=== PATIENT | male | born 1955 | race Caucasian/White ===

== ENCOUNTER 2018-03-18 12:12 | Inpatient (IN) | payer MEDICAID ==
[~2018-03-18] VITALS: Ht 165.1 cm; Wt 67.1 kg
[~2018-03-18 12:12] MED LIST: ASPI81TA2 PO; BACL10TA PO; BENA20TA2 PO; CARV3.1246 PO; EMPA25TA PO; GABA-531 PO; HYDR-1189 PO; LIP20 PO; METF1000 PO
[2018-03-18 12:35] VITALS: BP_SYST 130
[2018-03-18 13:44] LABS: BASOPHILS # (AUTO) 0.2 K/uL (0.0-0.2); BASOPHILS % (AUTO) 1.6 % (0.0-2.0); EOSINOPHILS # (AUTO) 0.1 K/uL (0.0-0.4); EOSINOPHILS % (AUTO) 1.3 % (0.0-4.0); HEMOGLOBIN 13.4 g/dL (14.0-18.0); LYMPHOCYTES # (AUTO) 1.3 K/uL (1.0-5.5); LYMPHOCYTES % (AUTO) 12.4 % (20.5-51.5); MEAN CORPUSCULAR HEMOGLOBIN 30 pg (27-31); MEAN CORPUSCULAR HGB CONC 33 % (32-36); MEAN CORPUSCULAR VOLUME 90 fL (79.0-98.0); MONOCYTES # (AUTO) 0.9 K/uL (0.0-1.0); MONOCYTES % (AUTO) 8.4 % (1.7-9.3); NEUTROPHILS # (AUTO) 8.3 K/uL (1.8-7.7); NEUTROPHILS % (AUTO) 76.3 % (40.0-70.0); PLATELET COUNT (AUTO) 295 K/uL (130-430); RED BLOOD CELL COUNT(AUTO) 4.44 MIL/uL (4.2-6.2); RED CELL DISTRIBUTION WIDTH 14.4 % (9.0-15.0); WHITE BLOOD COUNT (AUTO) 10.8 K/uL (4.8-10.8)
[2018-03-18 13:58] LABS: ANION GAP 7 (5-15); CALCIUM 8.7 mg/dL (8.4-11.0); CHLORIDE 105 mmol/L (98-107); CREATININE 1.24 mg/dL (0.55-1.30); GLUCOSE 173 mg/dL (70-99); POTASSIUM 4.4 mmol/L (3.5-5.1); SODIUM SERUM 138 mmol/L (136-145); UREA NITROGEN, BLOOD 33 mg/dL (8-21)
[2018-03-18 14:00] LABS: GFR AFRICAN AMERICAN 76 mL/min (>90)
[2018-03-18 14:10] LABS: ALANINE AMINOTRANSFERASE 12 U/L (12-78); ALBUMIN 3.6 g/dL (3.4-4.8); ASPARTATE AMINOTRANSFERASE 10 U/L (10-37); TOTAL BILIRUBIN 0.3 mg/dL (0.0-1.0)
[2018-03-18 14:12] LABS: ACETAMINOPHEN < 1 ug/mL (1-30); ALCOHOL, BLOOD < 3 mg/dL (<10)
[2018-03-18] MEDS ORDERED: NACL 0.9% 1,000 ML IV ONE (14:45)
[2018-03-18 16:23] LABS: BILIRUBIN,URINE NEGATIVE (NEGATIVE); BLOOD, URINE NEGATIVE (NEGATIVE); CLARITY/URINE CLEAR (CLEAR); COLOR,URINE YELLOW (YELLOW); GLUCOSE,URINE 3+ (NEGATIVE); KETONES,URINE NEGATIVE (NEGATIVE); LEUKOCYTE ESTERASE ,URINE NEGATIVE (NEGATIVE); NITRITE, URINE NEGATIVE (NEGATIVE); PH,URINE 5.5 (5.0-8.0); PROTEIN URINE NEGATIVE (NEGATIVE); UROBILINOGEN,URINE 0.2 (0.2-1.0)
[2018-03-18 16:38] LABS: BARBITURATE, URINE NEGATIVE (NEG <=200); BENZODIAZEPINE, URINE POSITIVE (NEG <=150); CANNABINOID, URINE NEGATIVE (NEG <=50); COCAINE, URINE NEGATIVE (NEG <=150); METHAMPHETAMINES SCREEN,URINE NEGATIVE (NEG <=500); OPIATE, URINE POSITIVE (NEG <=100); PHENCYCLIDINE SCREEN,URINE NEGATIVE (NEG <=25); UR TRICYCLIC ANTIDEPRESSANTS NEGATIVE (NEG <=300); URINE AMPHETAMINE NEGATIVE (NEG <=500); URINE METHADONE NEGATIVE (NEG <=200); URINE OXYCODONE SCREEN NEGATIVE (NEG <=100); URINE PROPOXYPHENE SCREEN NEGATIVE (NEG <=300)
[2018-03-18 16:50] LABS: BACTERIA,URINE FEW /HPF (None Seen); RBC,URINE NONE SEEN /HPF (0-3); WBC,URINE 0-3 /HPF (0-3)
[2018-03-18 16:51] LABS: FINE GRANULAR CASTS,URINE 0-10 /LPF (None Seen); MUCUS,URINE 1+ /LPF (None Seen)
[2018-03-18 17:19] VITALS: BP_SYST 156
[2018-03-18] MEDS ORDERED: DEXTROSE 50% JECT 50 ML DISP.SYRIN IVP PRN (18:30)
[2018-03-18] MEDS: HYDROcodone/ACETAMIN 5-325 MG TAB (NORCO/ VICODIN) PO PRN (18:52)
[2018-03-18] MEDS: INSULIN REGULAR, HUMAN 100 UNITS/ML, 10 ML VIAL (novoLIN R) SUBCUT PRN (18:56)
[2018-03-18 21:02] VITALS: BP_SYST 137
[2018-03-18] MEDS: GABAPENTIN 300 MG CAPSULE PO SCH (22:02)
[2018-03-18] MEDS: CARVEDILOL 3.125 MG TABLET (COREG) PO SCH (22:03)
[2018-03-18] MEDS: NACL 0.9% 1,000 ML IV SCH (22:07)
[2018-03-19 00:08] VITALS: BP_SYST 135
[2018-03-19] MEDS: INSULIN REGULAR, HUMAN 100 UNITS/ML, 10 ML VIAL (novoLIN R) SUBCUT PRN ×3 (00:56→18:18)
[2018-03-19] MEDS: HYDROcodone/ACETAMIN 5-325 MG TAB (NORCO/ VICODIN) PO PRN ×7 (01:53→23:14)
[2018-03-19] MEDS: NACL 0.9% 1,000 ML IV SCH ×3 (04:30→23:13)
[2018-03-19] MEDS ORDERED: HYDROcodone/ACETAMIN 5-325 MG TAB (NORCO/ VICODIN) ONE (07:03)
[2018-03-19] MEDS: IBUPROFEN 400 MG TABLET PO PRN ×2 (09:04→18:19)
[2018-03-19] MEDS: ATORVASTATIN 20 MG TABLET PO SCH (09:04)
[2018-03-19] MEDS: CARVEDILOL 3.125 MG TABLET (COREG) PO SCH ×2 (09:05→20:13)
[2018-03-19] MEDS: BENAZEPRIL HCL 20 MG TABLET (LOTENSIN) PO SCH (09:05)
[2018-03-19] MEDS: ASPIRIN 81 MG TAB.CHEW PO SCH (09:05)
[2018-03-19 12:36] VITALS: BP_SYST 124
[2018-03-19 16:01] VITALS: BP_SYST 111
[2018-03-19] MEDS ORDERED: DEXTROSE 50%-WATER 50 ML DISP.SYRIN IVP PRN ×2 (18:45)
[2018-03-19] MEDS ORDERED: INSULIN REGULAR, HUMAN 100 UNITS/ML, 10 ML VIAL (novoLIN R) SUBCUT PRN (18:45)
[2018-03-19] MEDS ORDERED: GLUCOSE 15 GM GEL (in 37.5 GM TUBE) PO PRN ×2 (18:45)
[2018-03-19 20:00] VITALS: BP_SYST 120
[2018-03-19] MEDS: GABAPENTIN 300 MG CAPSULE PO SCH (20:13)
[2018-03-20] VITALS: BP_SYST 132
[2018-03-20] MEDS: IBUPROFEN 400 MG TABLET PO PRN ×2 (02:32→10:37)
[2018-03-20] MEDS: HYDROcodone/ACETAMIN 5-325 MG TAB (NORCO/ VICODIN) PO PRN ×3 (03:10→11:44)
[2018-03-20 08:00] VITALS: BP_SYST 151
[2018-03-20] MEDS: ATORVASTATIN 20 MG TABLET PO SCH (09:01)
[2018-03-20] MEDS: NACL 0.9% 1,000 ML IV SCH (09:01)
[2018-03-20] MEDS: ASPIRIN 81 MG TAB.CHEW PO SCH (09:02)
[2018-03-20] MEDS: BENAZEPRIL HCL 20 MG TABLET (LOTENSIN) PO SCH (09:02)
[2018-03-20] MEDS: CARVEDILOL 3.125 MG TABLET (COREG) PO SCH (09:03)
[2018-03-20 12:23] VITALS: BP_SYST 135
== END 2018-03-20 12:40 | disposition home or self-care (01) | DRG 351 ==
LOC: SED 12:12 → SMU 15:57
PROVIDERS: ADMIT Internal Medicine Hospice and Palliative Medicine; ATTEND Internal Medicine Hospice and Palliative Medicine
DX: M19.011 Primary osteoarthritis, right shoulder (principal); G93.41 Metabolic encephalopathy; G20 Parkinson's disease; I42.9 Cardiomyopathy, unspecified; R44.3 Hallucinations, unspecified; R27.0 Ataxia, unspecified; E11.9 Type 2 diabetes mellitus without complications; I25.10 Atherosclerotic heart disease of native coronary artery without angina pectoris; E78.5 Hyperlipidemia, unspecified; I10 Essential (primary) hypertension; I25.2 Old myocardial infarction; Z79.82 Long term (current) use of aspirin; Z79.84 Long term (current) use of oral hypoglycemic drugs; Z79.899 Other long term (current) drug therapy
CPT/HCPCS: 36415; 73030; 80053; 80307; 81000-TC; 82607; 82962; 83036; 84443-TC; 85025; 87081; 96360; 97116-GP; 99285; G0480; G0481; G0482; J1815; J7030

== ENCOUNTER 2018-04-24 13:46 | Inpatient (IN) | payer MEDICAID ==
[~2018-04-24] VITALS: Ht 165.1 cm; Wt 63.5 kg
[2018-04-24 13:46] VITALS: BP_SYST 166
[~2018-04-24 13:46] MED LIST changes: +ASPI-1155 PO; -ASPI81TA2 PO
[2018-04-24] MEDS ORDERED: ASPIRIN 325 MG TABLET PO ONE (15:00)
[2018-04-24 15:09] LABS: BASOPHILS # (AUTO) 0.2 K/uL (0.0-0.2); BASOPHILS % (AUTO) 1.3 % (0.0-2.0); EOSINOPHILS # (AUTO) 0.4 K/uL (0.0-0.4); EOSINOPHILS % (AUTO) 3.1 % (0.0-4.0); HEMATOCRIT 34.7 % (36-54); HEMOGLOBIN 11.9 g/dL (14.0-18.0); LYMPHOCYTES # (AUTO) 1.5 K/uL (1.0-5.5); LYMPHOCYTES % (AUTO) 11.9 % (20.5-51.5); MEAN CORPUSCULAR HEMOGLOBIN 32 pg (27-31); MEAN CORPUSCULAR HGB CONC 34 % (32-36); MEAN CORPUSCULAR VOLUME 92 fL (79.0-98.0); MONOCYTES # (AUTO) 0.9 K/uL (0.0-1.0); NEUTROPHILS # (AUTO) 9.3 K/uL (1.8-7.7); NEUTROPHILS % (AUTO) 76.7 % (40.0-70.0); PLATELET COUNT (AUTO) 296 K/uL (130-430); RED BLOOD CELL COUNT(AUTO) 3.79 MIL/uL (4.2-6.2); WHITE BLOOD COUNT (AUTO) 12.3 K/uL (4.8-10.8)
[2018-04-24 15:10] LABS: ANION GAP 12 (5-15); CALCIUM 9.2 mg/dL (8.4-11.0); CHLORIDE 107 mmol/L (98-107); CREATININE 1.22 mg/dL (0.55-1.30); GLUCOSE 225 mg/dL (70-99); POTASSIUM 4.2 mmol/L (3.5-5.1); SODIUM SERUM 140 mmol/L (136-145); UREA NITROGEN, BLOOD 18 mg/dL (8-21)
[2018-04-24 15:12] LABS: ALBUMIN 3.3 g/dL (3.4-4.8); TOTAL BILIRUBIN 0.2 mg/dL (0.0-1.0)
[2018-04-24 15:31] LABS: ALANINE AMINOTRANSFERASE 11 U/L (12-78)
[2018-04-24 15:32] LABS: ASPARTATE AMINOTRANSFERASE < 5 U/L (10-37); GFR AFRICAN AMERICAN 77 mL/min (>90)
[2018-04-24 15:33] LABS: INR 0.9 (0.80-1.20); PROTHROMBIN TIME 9.4 SECS (9.5-12.5)
[2018-04-24 16:15] VITALS: BP_SYST 151
[2018-04-24] MEDS ORDERED: DEXTROSE 50% JECT 50 ML DISP.SYRIN IVP PRN (16:30)
[2018-04-24 16:45] VITALS: BP_SYST 151
[2018-04-24] MEDS: HYDROcodone/ACETAMIN 5-325 MG TAB (NORCO/ VICODIN) PO PRN (17:12)
[2018-04-24] MEDS: INSULIN REGULAR, HUMAN 100 UNITS/ML, 10 ML VIAL (novoLIN R) SUBCUT PRN ×2 (17:16→23:13)
[2018-04-24] MEDS: metFORMIN HCL 500 MG TABLET PO SCH (18:22)
[2018-04-24 19:56] VITALS: BP_SYST 155
[2018-04-24] MEDS: CARVEDILOL 3.125 MG TABLET (COREG) PO SCH (20:18)
[2018-04-24] MEDS: GABAPENTIN 300 MG CAPSULE PO SCH (20:18)
[2018-04-24] MEDS ORDERED: MORPHINE 2 MG/ML INJ. SYRINGE IVP ONE (23:00)
[2018-04-25 00:50] VITALS: BP_SYST 157
[2018-04-25] MEDS: HYDROcodone/ACETAMIN 5-325 MG TAB (NORCO/ VICODIN) PO PRN ×3 (01:00→16:27)
[2018-04-25 01:06] VITALS: BP_SYST 152
[2018-04-25] MEDS: INSULIN REGULAR, HUMAN 100 UNITS/ML, 10 ML VIAL (novoLIN R) SUBCUT PRN ×3 (06:40→23:47)
[2018-04-25 08:00] VITALS: BP_SYST 142
[2018-04-25] MEDS: metFORMIN HCL 500 MG TABLET PO SCH ×2 (08:34→18:01)
[2018-04-25] MEDS: BENAZEPRIL HCL 20 MG TABLET (LOTENSIN) PO SCH (08:35)
[2018-04-25] MEDS: ATORVASTATIN 20 MG TABLET PO SCH (08:35)
[2018-04-25] MEDS: CARVEDILOL 3.125 MG TABLET (COREG) PO SCH ×2 (08:35→20:28)
[2018-04-25] MEDS: ASPIRIN 81 MG TAB.CHEW PO SCH (08:36)
[2018-04-25 09:59] LABS: BASOPHILS # (AUTO) 0.1 K/uL (0.0-0.2); BASOPHILS % (AUTO) 0.6 % (0.0-2.0); EOSINOPHILS # (AUTO) 0.4 K/uL (0.0-0.4); EOSINOPHILS % (AUTO) 4.5 % (0.0-4.0); HEMATOCRIT 34.9 % (36-54); LYMPHOCYTES # (AUTO) 1.6 K/uL (1.0-5.5); MEAN CORPUSCULAR HEMOGLOBIN 31 pg (27-31); MEAN CORPUSCULAR HGB CONC 35 % (32-36); MEAN CORPUSCULAR VOLUME 90 fL (79.0-98.0); MONOCYTES # (AUTO) 0.7 K/uL (0.0-1.0); NEUTROPHILS # (AUTO) 6.5 K/uL (1.8-7.7); NEUTROPHILS % (AUTO) 69.9 % (40.0-70.0); PLATELET COUNT (AUTO) 297 K/uL (130-430); RED BLOOD CELL COUNT(AUTO) 3.87 MIL/uL (4.2-6.2); RED CELL DISTRIBUTION WIDTH 15.7 % (9.0-15.0); WHITE BLOOD COUNT (AUTO) 9.3 K/uL (4.8-10.8)
[2018-04-25] MEDS ORDERED: LORazepam 2 MG/ML VIAL IVP ONE (10:00)
[2018-04-25] MEDS: CARBIDOPA/LEVODOPA 25/250 MG TABLET PO SCH ×4 (12:22→22:07)
[2018-04-25 12:25] VITALS: BP_SYST 134
[2018-04-25 16:38] VITALS: BP_SYST 128
[2018-04-25 19:56] VITALS: BP_SYST 133
[2018-04-25] MEDS: GABAPENTIN 300 MG CAPSULE PO SCH (20:27)
[2018-04-25] MEDS: MORPHINE 2 MG/ML INJ. SYRINGE IVP PRN (22:07)
[2018-04-26] MEDS: HYDROcodone/ACETAMIN 5-325 MG TAB (NORCO/ VICODIN) PO PRN ×2 (00:37→09:56)
[2018-04-26] MEDS: CARBIDOPA/LEVODOPA 25/250 MG TABLET PO SCH ×6 (02:28→23:31)
[2018-04-26] MEDS: MORPHINE 2 MG/ML INJ. SYRINGE IVP PRN ×2 (05:07→08:43)
[2018-04-26 05:34] VITALS: BP_SYST 122
[2018-04-26] MEDS: ASPIRIN 81 MG TAB.CHEW PO SCH (08:41)
[2018-04-26] MEDS: CARVEDILOL 3.125 MG TABLET (COREG) PO SCH ×2 (08:41→21:03)
[2018-04-26] MEDS: ATORVASTATIN 20 MG TABLET PO SCH (08:41)
[2018-04-26] MEDS: metFORMIN HCL 500 MG TABLET PO SCH ×2 (08:41→17:59)
[2018-04-26 08:45] VITALS: BP_SYST 120
[2018-04-26] MEDS: BENAZEPRIL HCL 20 MG TABLET (LOTENSIN) PO SCH (09:55)
[2018-04-26] MEDS: MORPHINE 4 MG/ML INJ. SYRINGE IVP PRN ×4 (11:16→23:36)
[2018-04-26] MEDS: INSULIN REGULAR, HUMAN 100 UNITS/ML, 10 ML VIAL (novoLIN R) SUBCUT PRN ×3 (11:23→23:34)
[2018-04-26 12:45] VITALS: BP_SYST 112
[2018-04-26 15:08] VITALS: BP_SYST 108
[2018-04-26 16:45] VITALS: BP_SYST 115
[2018-04-26 19:15] VITALS: BP_SYST 131
[2018-04-26] MEDS: GABAPENTIN 300 MG CAPSULE PO SCH (21:03)
[2018-04-27 00:20] VITALS: BP_SYST 115
[2018-04-27] MEDS: CARBIDOPA/LEVODOPA 25/250 MG TABLET PO SCH ×3 (02:53→11:48)
[2018-04-27] MEDS: MORPHINE 4 MG/ML INJ. SYRINGE IVP PRN ×2 (03:35→08:02)
[2018-04-27] MEDS: INSULIN REGULAR, HUMAN 100 UNITS/ML, 10 ML VIAL (novoLIN R) SUBCUT PRN (06:24)
[2018-04-27] MEDS: ASPIRIN 81 MG TAB.CHEW PO SCH (08:03)
[2018-04-27] MEDS: BENAZEPRIL HCL 20 MG TABLET (LOTENSIN) PO SCH (08:04)
[2018-04-27] MEDS: metFORMIN HCL 500 MG TABLET PO SCH (08:05)
[2018-04-27] MEDS: ATORVASTATIN 20 MG TABLET PO SCH (08:05)
[2018-04-27] MEDS: CARVEDILOL 3.125 MG TABLET (COREG) PO SCH (08:05)
[2018-04-27 08:08] VITALS: BP_SYST 118
[2018-04-27 09:36] VITALS: BP_SYST 94
[2018-04-27 09:56] VITALS: BP_SYST 94
[2018-04-27] MEDS: HYDROcodone/ACETAMIN 5-325 MG TAB (NORCO/ VICODIN) PO PRN (11:44)
[2018-04-27 11:45] VITALS: BP_SYST 133
== END 2018-04-27 11:54 | DRG 861 ==
LOC: SED 13:46 → STU 15:38
PROVIDERS: ADMIT Internal Medicine Hospice and Palliative Medicine; ATTEND Internal Medicine Hospice and Palliative Medicine
DX: R53.1 Weakness (principal); G20 Parkinson's disease; I10 Essential (primary) hypertension; E11.9 Type 2 diabetes mellitus without complications; M79.605 Pain in left leg; E78.00 Pure hypercholesterolemia, unspecified; M54.2 Cervicalgia; Z86.73 Personal history of transient ischemic attack (TIA), and cerebral infarction without residual deficits; Z79.82 Long term (current) use of aspirin; Z79.899 Other long term (current) drug therapy; Z79.84 Long term (current) use of oral hypoglycemic drugs
CPT/HCPCS: 36415; 70450-TC; 70551; 71045; 73564; 80053; 82962; 84484; 85025; 85610-TC; 85730-TC; 93005; 97110-GP; 97116-GP; 97530-GP; 99285; J1815; J2060; J2270

== ENCOUNTER 2018-04-28 03:56 | Emergency (ER) | payer MEDICAID ==
[~2018-04-28] VITALS: Ht 165.1 cm; Wt 65.3 kg
[2018-04-28 04:00] VITALS: BP_SYST 112
[2018-04-28] MEDS ORDERED: KETOROLAC TROMETHAMINE 60 MG/2 ML VIAL IM ONE (04:30)
[2018-04-28 05:15] VITALS: BP_SYST 110
== END 2018-04-28 05:15 | disposition home or self-care (01) ==
LOC: SED 03:56
DX: G89.29 Other chronic pain (principal); M25.562 Pain in left knee; G20 Parkinson's disease; E11.9 Type 2 diabetes mellitus without complications; Z86.79 Personal history of other diseases of the circulatory system; Z79.82 Long term (current) use of aspirin; Z79.899 Other long term (current) drug therapy
CPT/HCPCS: 73564; 96372; 99284; J1885

== ENCOUNTER 2018-04-28 08:35 | Emergency (ER) | payer MEDICAID ==
[~2018-04-28] VITALS: Ht 162.6 cm; Wt 65.3 kg
[2018-04-28 08:40] VITALS: BP_SYST 118
[2018-04-28] MEDS ORDERED: KETOROLAC TROMETHAMINE 30 MG VIAL IM ONE (10:15)
[2018-04-28 10:45] VITALS: BP_SYST 118
== END 2018-04-28 10:45 | disposition home or self-care (01) ==
LOC: SED 08:35
DX: S80.02XA Contusion of left knee, initial encounter (principal); M25.511 Pain in right shoulder; G20 Parkinson's disease; J44.9 Chronic obstructive pulmonary disease, unspecified; F17.200 Nicotine dependence, unspecified, uncomplicated; E11.9 Type 2 diabetes mellitus without complications; Z86.79 Personal history of other diseases of the circulatory system; Z79.82 Long term (current) use of aspirin; Z79.899 Other long term (current) drug therapy; W19.XXXA Unspecified fall, initial encounter; Y93.89 Activity, other specified; Y92.89 Other specified places as the place of occurrence of the external cause; Y99.8 Other external cause status
CPT/HCPCS: 71046; 72110; 73564; 96372; 99284; J1885

== ENCOUNTER 2018-04-30 14:29 | Emergency (ER) | payer MEDICAID ==
[~2018-04-30] VITALS: Ht 165.1 cm; Wt 65.8 kg
[2018-04-30 14:35] VITALS: BP_SYST 147
[2018-04-30] MEDS ORDERED: HYDROcodone/ACETAMIN 5-325 MG TAB (NORCO/ VICODIN) PO ONE (15:15)
[2018-04-30] MEDS ORDERED: KETOROLAC TROMETHAMINE 60 MG/2 ML VIAL IM ONE (15:15)
[2018-04-30] MEDS ORDERED: IBUPROFEN 600 MG TABLET PO ONE (19:00)
[2018-05-01 00:18] VITALS: BP_SYST 151
== END 2018-05-01 00:15 | disposition home or self-care (01) ==
LOC: SED 14:29
DX: M54.30 Sciatica, unspecified side (principal); G89.29 Other chronic pain; M25.562 Pain in left knee; J44.9 Chronic obstructive pulmonary disease, unspecified; G20 Parkinson's disease; E11.9 Type 2 diabetes mellitus without complications; R03.0 Elevated blood-pressure reading, without diagnosis of hypertension; Z86.79 Personal history of other diseases of the circulatory system; Z79.82 Long term (current) use of aspirin; Z79.899 Other long term (current) drug therapy
CPT/HCPCS: 99283; J1885

== ENCOUNTER 2018-05-19 20:45 | Emergency (ER) | payer MEDICAID ==
[~2018-05-19] VITALS: Ht 165.1 cm; Wt 63.5 kg
[2018-05-19 20:47] VITALS: BP_SYST 129
[2018-05-19] MEDS ORDERED: KETOROLAC TROMETHAMINE 30 MG VIAL IM ONE (21:30)
[2018-05-19] MEDS ORDERED: HYDROcodone/ACETAMIN 5-325 MG TAB (NORCO/ VICODIN) PO ONE ×2 (21:30→23:15)
[2018-05-19 23:30] VITALS: BP_SYST 120
== END 2018-05-19 23:30 | disposition home or self-care (01) ==
LOC: SED 20:45
DX: S83.92XA Sprain of unspecified site of left knee, initial encounter (principal); S46.911A Strain of unspecified muscle, fascia and tendon at shoulder and upper arm level, right arm, initial encounter; S46.912A Strain of unspecified muscle, fascia and tendon at shoulder and upper arm level, left arm, initial encounter; F17.210 Nicotine dependence, cigarettes, uncomplicated; J44.9 Chronic obstructive pulmonary disease, unspecified; E11.9 Type 2 diabetes mellitus without complications; G20 Parkinson's disease; Z86.79 Personal history of other diseases of the circulatory system; Z79.82 Long term (current) use of aspirin; Z79.899 Other long term (current) drug therapy; W19.XXXA Unspecified fall, initial encounter; Y93.89 Activity, other specified; Y92.89 Other specified places as the place of occurrence of the external cause; Y99.8 Other external cause status
CPT/HCPCS: 73030; 73564; 96372; 99284; J1885

== ENCOUNTER 2018-11-28 08:37 | Emergency (ER) | payer MEDICAID ==
[~2018-11-28] VITALS: Ht 165.1 cm; Wt 68.0 kg
[~2018-11-28 08:37] MED LIST changes: -BENA20TA2 PO; +BENA20TA9 PO
[2018-11-28 08:47] VITALS: BP_SYST 160
[2018-11-28] MEDS ORDERED: KETOROLAC TROMETHAMINE 60 MG/2 ML VIAL IM ONE (09:00)
[2018-11-28 10:48] VITALS: BP_SYST 160
== END 2018-11-28 10:48 | disposition home or self-care (01) ==
LOC: SED 08:37
DX: M17.12 Unilateral primary osteoarthritis, left knee (principal); J44.9 Chronic obstructive pulmonary disease, unspecified; E11.9 Type 2 diabetes mellitus without complications; G20 Parkinson's disease; Z86.79 Personal history of other diseases of the circulatory system; Z79.82 Long term (current) use of aspirin; Z79.899 Other long term (current) drug therapy
CPT/HCPCS: 96372; 99283; J1885